=== PATIENT | female | born 1985 | race Caucasian/White ===

== ENCOUNTER 2024-05-10 00:08 | Emergency (ER) | payer MEDICARE ==
[~2024-05-10] VITALS: Ht 165.1 cm; Wt 93.9 kg
[2024-05-10] MEDS: ONDANSETRON HCL INJ 2MG/ML 2ML 2 MG/ML VIAL IV STA (01:47)
[2024-05-10] MEDS: KETOROLAC TROMETHAMINE 30 MG/ML VIAL IV STA (01:48)
[2024-05-10] MEDS: SODIUM CHLORIDE 0.9% 1000ML 1,000 ML IV ONE (01:49)
[2024-05-10 02:10] LABS: BASOPHILS % 0.4 % (0.0-1.0); EOSINOPHILS # (AUTO) 0.2 (0.0-0.4); EOSINOPHILS % 1.5 % (0.0-6.0); HEMATOCRIT 36.4 % (34.2-44.1); HEMOGLOBIN 12.2 g/dL (12.0-16.0); LYMPHOCYTES # (AUTO) 2.8 (1.0-3.2); LYMPHOCYTES % 27.5 % (18.0-39.1); MEAN CORPUSCULAR HEMOGLOBIN 32.6 pg (28-32); MEAN CORPUSCULAR HGB CONC 33.5 g/dL (31-35); MEAN CORPUSCULAR VOLUME 97.3 fL (81-99); MONOCYTES # (AUTO) 0.6 (0.2-0.8); MONOCYTES % 6.1 % (4.4-11.3); NEUTROPHILS # (AUTO) 6.5 (2.1-6.9); PLATELET COUNT 274 x10e3/uL (140-360); RED BLOOD COUNT 3.74 x10e6/uL (3.6-5.1); WHITE BLOOD COUNT 10.12 x10e3/uL (4.8-10.8)
[2024-05-10 02:23] LABS: ALBUMIN 3.8 g/dL (3.5-5.0); ALBUMIN/GLOBULIN RATIO 1.1 (0.8-2.0); ANION GAP 12.8 mmol/L (8-16); BILIRUBIN,TOTAL 0.5 mg/dL (0.2-1.2); CALCIUM 8.6 mg/dL (8.4-10.2); CREATININE, SERUM 0.68 mg/dL (0.57-1.11); TOTAL PROTEIN 7.3 g/dL (6.5-8.1)
[2024-05-10 02:27] LABS: POTASSIUM 2.8 mmol/L (3.5-5.1)
[2024-05-10] MEDS ORDERED: IOPAMIDOL 370 MG/ML 100 ML INFUS..BTL INJ ONE (02:52)
[2024-05-10 04:09] LABS: BILIRUBIN,URINE NEGATIVE (NEGATIVE); CLARITY,URINE CLEAR (CLEAR); COLOR,URINE YELLOW (YELLOW); GLUCOSE, URINE NEGATIVE (NEGATIVE); KETONES,URINE NEGATIVE (NEGATIVE); LEUKOCYTE ESTERASE ,URINE NEGATIVE (NEGATIVE); NITRITE,URINE NEGATIVE (NEGATIVE); PH,URINE 6 (5 - 7); PROTEIN,URINE DIPSTICK NEGATIVE (NEGATIVE); RBC,URINE 0-5 /HPF (0-5); URINE UROBILINOGEN 0.2 mg/dL (0.2 - 1); WBC,URINE (MAN) 0-5 /HPF (0-5)
[2024-05-10 04:10] LABS: BACTERIA,URINE FEW /HPF; EPITHELIAL CELLS,URINE FEW /LPF
[2024-05-10] MEDS ORDERED: ONDANSETRON ODT4 MG SL (05:23)
[2024-05-10] MEDS ORDERED: DICYCLOMINE HCL20 MG PO (05:23)
[2024-05-10] MEDS ORDERED: PANTOPRAZOLE SO40 MG PO (05:23)
[2024-05-10 05:27] VITALS: PULSE 82; RESP 17; TEMP 98.7
[2024-05-10 05:28] VITALS: BP 110/62; O2SAT 96
[2024-05-10] MEDS: POTASSIUM CHLORIDE 20 MEQ TAB CR PO STA (05:35)
== END 2024-05-10 05:40 | disposition home or self-care (01) ==
LOC: ER 00:24
DX: R11.2 Nausea with vomiting, unspecified (principal); R10.32 Left lower quadrant pain; F32.A Depression, unspecified; Z98.84 Bariatric surgery status
CPT/HCPCS: 36415; 74177; 80053; 81001; 83690; 85025; 99284; J1885; J2405; J2470; J7030; Q9967